=== PATIENT | female | born 1965 | race Asian ===

== ENCOUNTER 2021-11-25 08:49 | Emergency (ER) | payer MEDICAID ==
[~2021-11-25] VITALS: Ht 162.6 cm; Wt 57.2 kg
[2021-11-25 09:02] VITALS: BP_SYST 156
--- NOTE | 2021-11-25 09:02 | NUR ---
Placed in room 3 . Placed on surveillance system monitor, blood pressure machine and pulse oximeter. To gown for exam. Side rails up. Report given to LE MEI.
--- NOTE | 2021-11-25 09:25 | NUR ---
Pt alert and oriented x 3. Here from home reporting 6/10 epigastric pain radiating to shoulder and constipation for few days. Wants to be checked for "ulcer." Awaiting MD centeno.
[2021-11-25] MEDS ORDERED: MAG HYDROX/AL HYDROX/SIMETH 30 ML, DICYCLOMINE HCL 20 MG, LIDOCAINE VISCOUS 2% 15ML (PO... PO ONE ×3 (09:30)
--- NOTE | 2021-11-25 09:30 | NUR ---
Dr Garcia at bedside to examine patient
[2021-11-25] MEDS ORDERED: DICYCLOMINE HCL 10 MG/5 ML SOLUTION ONE (10:01)
[2021-11-25] MEDS ORDERED: MAG-AL HYDROX/SIMETH 30 ML UDC ONE (10:01)
[2021-11-25 10:13] LABS: BASOPHILS % (AUTO) 0.6 % (0.0-2.0); EOSINOPHILS # (AUTO) 0.1 K/uL (0.0-0.4); EOSINOPHILS % (AUTO) 2.9 % (0.0-4.0); HEMATOCRIT 41.8 % (36-48); HEMOGLOBIN 14.1 g/dL (12.0-16.0); LYMPHOCYTES % (AUTO) 21.7 % (20.5-51.5); MEAN CORPUSCULAR HEMOGLOBIN 30 pg (27-31); MEAN CORPUSCULAR HGB CONC 34 % (32-36); MEAN CORPUSCULAR VOLUME 88 fL (79.0-98.0); MONOCYTES # (AUTO) 0.3 K/uL (0.0-1.0); MONOCYTES % (AUTO) 5.8 % (1.7-9.3); NEUTROPHILS # (AUTO) 3.2 K/uL (1.8-7.7); PLATELET COUNT (AUTO) 210 K/uL (130-430); RED BLOOD CELL COUNT(AUTO) 4.74 MIL/uL (4.2-6.2); RED CELL DISTRIBUTION WIDTH 12.9 % (9.0-15.0); WHITE BLOOD COUNT (AUTO) 4.6 K/uL (4.8-10.8)
[2021-11-25 10:22] LABS: CALCIUM 9.1 mg/dL (8.4-11.0); CREATININE 0.63 mg/dL (0.55-1.30); POTASSIUM 4.2 mmol/L (3.5-5.1)
--- NOTE | 2021-11-25 10:24 | NUR ---
Pt returning to bed from Xray via wheelchair
[2021-11-25 10:27] LABS: ALBUMIN 4.1 g/dL (3.4-4.8); TOTAL BILIRUBIN 0.5 mg/dL (0.0-1.0)
[2021-11-25] MEDS ORDERED: LIDOCAINE VISCOUS 2%, 15 ML UDC ONE (10:28)
[2021-11-25] MEDS ORDERED: PRO40 PO (11:10)
[2021-11-25] MEDS ORDERED: ANT30 PO (11:10)
[2021-11-25] MEDS ORDERED: DICY10CA13 PO (11:10)
[2021-11-25 11:43] VITALS: BP_SYST 120
--- NOTE | 2021-11-25 12:25 | NUR ---
Patient given written and verbal discharge instructions and verbalizes understanding. ER MD discussed with patient the results and treatment provided. Patient in stable condition. ID arm band removed. Rx of Mylanta, Dicyclomine, and Protonix given. Patient educated on pain management and to follow up with PMD. Pain improved. Opportunity for questions provided and answered. Medication side effect fact sheet provided.
== END 2021-11-25 12:25 | disposition home or self-care (01) ==
LOC: SED 08:49
DX: K29.70 Gastritis, unspecified, without bleeding (principal)
CPT/HCPCS: 36415; 74021; 80053; 83690; 85025; 93005; 99285; J2001; Q0162

== ENCOUNTER 2023-09-11 07:38 | Emergency (ER) | payer MEDICAID, OTHER ==
[~2023-09-11] VITALS: Ht 160 cm; Wt 57.2 kg
[~2023-09-11 07:38] MED LIST: ANT30 PO; DICY-14 PO; PRO40 PO
[2023-09-11 07:54] VITALS: BP_SYST 135; PULSE 87; RESP 17; TEMP 98.1; O2SAT 99
[2023-09-11] MEDS ORDERED: LACEYEO OP (08:00)
[2023-09-11] MEDS ORDERED: PRED20TA PO (08:00)
[2023-09-11] MEDS ORDERED: GLYC30DR4 EACH EYE (08:00)
[2023-09-11] MEDS ORDERED: VALA10002 PO (08:00)
[2023-09-11 08:19] VITALS: BP_SYST 115; PULSE 71; RESP 16; TEMP 98.1; O2SAT 98
== END 2023-09-11 08:25 | disposition home or self-care (01) ==
LOC: SED 07:38
DX: G51.0 Bell's palsy (principal); R20.2 Paresthesia of skin; Z79.899 Other long term (current) drug therapy
CPT/HCPCS: 99283